=== PATIENT | female | born 1980 | race Caucasian/White ===

== ENCOUNTER 2018-08-09 09:20 | Emergency (ER) | payer BC ==
[2018-08-09 10:10] VITALS: BP 108/78
--- NOTE | 2018-08-09 10:29 | UC ---
FLU HPI - HPI Summary HPI Summary: 38-year-old female presents with one-week history of sore throat. Associated with fatigue, general malaise, chills, nasal congestion, and occasional dry nonproductive cough. States sore throat is worse at night and first thing in the morning. Denies fever, body aches, ear pain, dysphagia, chest pain, shortness of breath, abdominal pain, nausea, vomiting, or diarrhea. - History of Current Complaint Chief Complaint: UCRespiratory Stated Complaint: SORE THROAT Time Seen by Provider: 08/09/18 10:12 Hx Obtained From: Patient Hx Last Menstrual Period: ONSET TODAY Pain Intensity: 8 - Allergy/Home Medications Allergies/Adverse Reactions: Allergies Allergy/AdvReac Type Severity Reaction Status Date / Time No Known Allergies Allergy Verified 08/09/18 10:03 Home Medications: Home Medications Acetaminophen [Tylenol Arthritis] 2 tab PO PRN 08/09/18 [History] PMH/Surg Hx/FS Hx/Imm Hx Previously Healthy: Yes - Denies significant PMH - Surgical History Surgical History: Yes Surgery Procedure, Year, and Place: JAW SURGERY at age 16 yrs - Family History Known Family History: Positive: Non-Contributory - Social History Occupation: Employed Full-time Lives: Alone Alcohol Use: Occasionally Substance Use Type: None Smoking Status (MU): Current Every Day Smoker Type: Cigarettes - Immunization History Most Recent Influenza Vaccination: FEB 2015 Review of Systems All Other Systems Reviewed And Are Negative: Yes Constitutional: Positive: Chills, Fatigue, Other - Malaise. Negative: Fever Skin: Negative: Rash Eyes: Negative: Drainage, Eye Redness ENT: Positive: Sore Throat, Nasal Discharge, Sinus Congestion. Negative: Ear Ache, Sinus Pain/Tenderness Respiratory: Positive: Cough. Negative: Shortness Of Breath Cardiovascular: Negative: Palpitations, Chest Pain Gastrointestinal: Negative: Abdominal Pain, Vomiting, Diarrhea, Nausea Genitourinary: Positive: Negative Musculoskeletal: Positive: Negative Neurological: Positive: Negative Is Patient Immunocompromised?: No Physical Exam - Summary Physical Exam Summary: GENERAL APPEARANCE: Well developed, well nourished, alert and cooperative, and appears to be in no acute distress. EYES: Conjunctiva clear. No drainage. Vision is grossly intact. EARS: External auditory canals and tympanic membranes clear, hearing grossly intact. NOSE: Mild-moderate nasal congestion. No nasal discharge. THROAT: Mild pharyngeal erythema with post-nasal drip. No tonsilar inflammation , swelling, exudate, or lesions. Uvula midline. Oral cavity normal. Teeth and gingiva in good general condition. NECK: Neck supple, non-tender without lymphadenopathy. CARDIAC: Normal S1 and S2. No S3, S4 or murmurs. Rhythm is regular. There is no peripheral edema, cyanosis or pallor. Extremities are warm and well perfused. Capillary refill is less than 2 seconds. Peripheral pulses intact. LUNGS: Clear to auscultation without rales, rhonchi, wheezing or diminished breath sounds. Dry, non-productive cough. ABDOMEN: Positive bowel sounds. Soft, nondistended, nontender. No guarding or rebound. No masses or hepatosplenomegally. MUSKULOSKELETAL: ROM intact to all extremities. No joint erythema or tenderness. Normal muscular development. Normal gait. SKIN: Skin normal color, texture and turgor with no lesions or eruptions. Triage Information Reviewed: Yes Vital Signs: Initial Vital Signs Temp 98 F 08/09/18 10:05 Pulse 72 08/09/18 10:05 Resp 15 08/09/18 10:05 BP 108/78 08/09/18 10:05 Pulse Ox 100 08/09/18 10:05 Vital Signs Reviewed: Yes Flu Course/Dx - Course Course Of Treatment: 38-year-old female presents with one-week history of sore throat. Associated with fatigue, general malaise, chills, nasal congestion, and occasional dry nonproductive cough. States sore throat is worse at night and first thing in the morning. Denies fever, body aches, ear pain, dysphagia, chest pain, shortness of breath, abdominal pain, nausea, vomiting, or diarrhea. Afebrile. Vital signs stable. Exam is remarkable for mild to moderate nasal congestion, mild pharyngeal erythema with postnasal drip, no tonsillar swelling or exudate, no cervical lymphadenopathy, and a dry nonproductive cough. Rapid strep negative. History and exam are consistent with a viral upper respiratory infection and I suspect that her sore throat is primarily from postnasal drip. Recommending symptomatic treatment with nasal saline rinses, fluticasone nasal spray, [id number] decongestant, and [id number] analgesics. She is to return here or follow up with primary care provider in 5-7 days if symptoms do not improve. Dyspnea guidance and warning symptoms reviewed with patient. Realizes understanding and plan of care. - Differential Dx/Diagnosis Differential Diagnosis/HQI/PQRI: Bronchitis, Influenza, Pneumonia, Upper Respiratory Infection Provider Diagnosis: Viral upper respiratory infection Discharge - Sign-Out/Discharge Documenting (check all that apply): Patient Departure All imaging exams completed and their final reports reviewed: No Studies - Discharge Plan Condition: Stable Disposition: HOME Prescriptions: Fluticasone NASAL SPRAY 50MCG* [Flonase NASAL SPRAY 50MCG*] 2 spray BOTH NARES DAILY #1 btl Patient Education Materials: Upper Respiratory Infection (ED) Referrals: Davon Lane MD [Primary Care Provider] - 5 Days (Follow up in 5-7 days if no improvement in symptoms.) Additional Instructions: The rapid strep test performed in the clinic today was negative. Your history and exam are consistent with a viral upper respiratory infection. Viral infections do not respond to antibiotics and are limited to the treatment of symptoms. Viral infections typically run their course in 7-10 days. Drink plenty of fluids to avoid dehydration especially if you are running any fever. Use a saline rinse kit such as Neti Pot or NeilMed at least twice a day to help thin secretions and promote drainage of the sinuses. Use fluticasone (Flonase) nasal spray 2 sprays each nostril once daily. Use an over the counter decongestant such as Sudafed according to directions for the nasal congestion. Take over the counter acetaminophen (Tylenol) or ibuprofen (Advil, Motrin) according to directions as needed for pain or fever. Use salt water gargles several times a day if you have a sore throat. You may also use Chloraseptic spray or Cepacol lonzenges according to directions which contain a numbing medication and can provide some temporary relief from your sore throat. Return here or follow up with your primary care provider in 5-7 days if symptoms persist. Seek immediate medical attention in the emergency room if you have fever greater than 100.5 F despite taking acetaminophen or ibuprofen, have chest pain , difficulty breathing, are unable to swallow, or have any worsening of sympt - Billing Disposition and Condition Condition: STABLE Disposition: Home
== END 2018-08-09 10:42 | disposition home or self-care (01) ==
LOC: UCCORT 09:20
DX: J06.9 Acute upper respiratory infection, unspecified (principal); F17.210 Nicotine dependence, cigarettes, uncomplicated
CPT/HCPCS: 87651; 99202; G0463

== ENCOUNTER 2018-11-13 15:38 | Emergency (ER) | payer BC ==
[2018-11-13 16:10] VITALS: BP 109/58
--- NOTE | 2018-11-13 16:11 | UC ---
Throat Pain/Nasal Naresh HPI - HPI Summary HPI Summary: 38 y/o female presents to the urgent care c/o nasal congestion, productive cough and mild sore throat w/ yellowish phlegm for the past week. Pt thinks thinks symptoms started w/ allergies about 1.5 weeks ago and then cough developed w/ moderate PND. Pt has been taken Zyrtec and Tylenol PRN to alleviate symptoms. However symptoms worsen 3 days ago w/ body aches, chills. Pt denies fever, but has felt hot, denies SOB, wheezing. chest pain, REYES, abdominal pain, N/V/d. LMP:10/28/2018 w/ regular menstrual cycles and declines test. - History of Current Complaint Chief Complaint: UCRespiratory Stated Complaint: COUGH,ACHY Time Seen by Provider: 11/13/18 16:09 Hx Obtained From: Patient Hx Last Menstrual Period: 10/28/18 Onset/Duration: Gradual Onset, Lasting Weeks, Still Present, Worse Since - 3 days w/ body aches adn chills Severity: Moderate Pain Intensity: 5 Pain Scale Used: 0-10 Numeric Cough: Sputum Appears - yellowish Associated Signs & Symptoms: Positive: Sinus Discomfort, Nasal Discharge - yellowish, Other - chills. Negative: Wheezing, Fever Related History: Seasonal Allergies - Epiglottits Risk Factors Epiglottis Risk Factors: Negative - Allergies/Home Medications Allergies/Adverse Reactions: Allergies Allergy/AdvReac Type Severity Reaction Status Date / Time No Known Allergies Allergy Verified 11/13/18 16:07 PMH/Surg Hx/FS Hx/Imm Hx Previously Healthy: Yes - Pt denies PMHX - Surgical History Surgical History: Yes Surgery Procedure, Year, and Place: JAW SURGERY at age 16 yrs - Family History Known Family History: Positive: Diabetes - Social History Occupation: Employed Full-time Lives: With Family Alcohol Use: Occasionally Substance Use Type: None Smoking Status (MU): Former Smoker Type: Cigarettes - Immunization History Most Recent Influenza Vaccination: FEB 2015 Review of Systems All Other Systems Reviewed And Are Negative: Yes Constitutional: Positive: Chills, Fatigue, Other - body aches Skin: Positive: Negative Eyes: Positive: Negative ENT: Positive: Sore Throat - mild, Nasal Discharge - yellowish, Sinus Congestion , Sinus Pain/Tenderness, Other - moderate PND Respiratory: Positive: Cough - productive w/ yellowish phlegm Cardiovascular: Positive: Negative Gastrointestinal: Positive: Negative Genitourinary: Positive: Negative Motor: Positive: Negative Neurovascular: Positive: Negative Musculoskeletal: Positive: Negative Neurological: Positive: Negative Psychological: Positive: Negative Is Patient Immunocompromised?: No Physical Exam - Summary Physical Exam Summary: Vital Signs Reviewed: Yes General: well developed, well nourished male sitting in the examining table w/o any apparent distress Eyes: Positive: Conjunctiva Clear - PERRLA, EOMI, fundi grossly normal ENT: Positive: Normal ENT inspection, Hearing grossly normal, Pharynx normal, Nasal congestion - edematous and erythematous nasal mucosa, Nasal drainage - yellowish drainage, TMs normal. Negative: Tonsillar swelling, Tonsillar exudate Neck: Positive: Supple, Nontender, No Lymphadenopathy Respiratory: no orthopnea or dyspnea. Able to speak in full sentences, no retractions or accessory muscle use, no tripod position, stridor, or head bobbing. Positive breath sounds bilaterally. diffuse scattered rhonchi on b/L lungs, no wheezes, no crackles or rales. Cardiovascular: Positive: RRR, No Murmur, Pulses Normal, Brisk Capillary Refill Abdomen Description: Positive: Nontender, No Organomegaly, Soft. Negative: CVA Tenderness (R), CVA Tenderness (L) Bowel Sounds: Positive: Present Musculoskeletal Exam: Normal Musculoskeletal: Positive: Strength Intact, ROM Intact, No Edema Neurological Exam: Normal Psychological Exam: Normal Skin Exam: Normal Triage Information Reviewed: Yes Vital Signs: Initial Vital Signs Temp 98.6 F 11/13/18 16:07 Pulse 89 11/13/18 16:07 Resp 16 11/13/18 16:07 BP 109/58 11/13/18 16:07 Pulse Ox 100 11/13/18 16:07 Throat Pain/Nasal Course/Dx - Course Course Of Treatment: 38 y/o female presents to the urgent care c/o nasal congestion, productive cough and mild sore throat w/ yellowish phlegm for the past week. Pt thinks thinks symptoms started w/ allergies about 1.5 weeks ago and then cough developed w/ moderate PND. Pt has been taken Zyrtec and Tylenol PRN to alleviate symptoms. However symptoms worsen 3 days ago w/ body aches, chills. Pt denies fever, but has felt hot, denies SOB, wheezing. chest pain, REYES, abdominal pain, N/V/d. LMP:10/28/2018 w/ regular menstrual cycles and declines test. Hx obtained. Pt w/ B/L posterior lungs w/ scattered rhonchi on examination. O2SAt: 100%. Chest X-ray ordered to r/o pneumonia. Impression: IMPRESSION:DENSITY IN THE INFERIOR ASPECT OF THE LEFT UPPER LOBE, LIKELY INFECTIOUS IN THIS CLINICAL SETTING AND ACCORDING TO THE PATIENT'S DEMOGRAPHIC. A FOLLOW-UP CHEST X-RAY AFTER AN APPROPRIATE COURSE OF THERAPY IS ADVISED TO ASCERTAIN RESOLUTION as per radiologist. Patient prescribed Doxycycline PO, and Tessalon Tabs to alleviate symptoms as directed below. The patient was recommended to increase fluid intake, rest and eat well. Strongly advised to go to the ER if symptoms worsen despite taking antibiotics. Otherwise f/u w/ her PCP in 3 days to make sure symptoms ar improving adn when she finishes full treatment to make sure complete resolutions of pneumonia. . All D/C instructions explained. Patient understood and agree w/ plan of care. Pt left clinic hemodynamically stable , A&OX3 - Differential Dx/Diagnosis Differential Diagnosis/HQI/PQRI: Influenza, Pharyngitis, Sinusitis, URI, Other - bronchitis, pneumonia Provider Diagnosis: Community acquired pneumonia Discharge - Sign-Out/Discharge Documenting (check all that apply): Patient Departure - D/C home All imaging exams completed and their final reports reviewed: Yes - Discharge Plan Condition: Stable Disposition: HOME Prescriptions: Benzonatate CAP* [Tessalon 100 MG CAP*] 100 mg PO TID #21 cap DOXYcycline CAP(*) [DOXYcycline 100MG CAP(*)] 100 mg PO BID #20 cap Patient Education Materials: Community Acquired Pneumonia (ED) Referrals: Davon Lane MD [Primary Care Provider] - 3 Days Additional Instructions: 1-Please take full course of antibiotics to avoid resistance. take yogurst w/ probiotics or culturelle to protect your GI system 2-Take Tessalon tabs to alleviate cough. Increase fluid intake, rest and eat well. Take Ibuproen PO q6-8prn if you develop fever. 3- If symptoms do not improve or worsen or your develop SOB with fever and severe cough despite taking antibiotics please go immediately to the ER further evaluation and treatment. 4-See your PCP in 3 days to check your symptoms are improving and when you finished full course of treatment for repeat chest -Xray to make sure complete resolution of pneumonia. - Billing Disposition and Condition Condition: STABLE Disposition: Home
== END 2018-11-13 17:20 | disposition home or self-care (01) ==
LOC: UCCORT 15:38
DX: J18.9 Pneumonia, unspecified organism (principal); Z87.891 Personal history of nicotine dependence
CPT/HCPCS: 71046; 99212; G0463